=== PATIENT | female | born 2000 | race Caucasian/White ===

== ENCOUNTER 2019-04-17 18:01 | Emergency (ER) | payer OTHER, SELFPAY ==
[2019-04-17] MEDS ORDERED: NA CHLORIDE 0.9% 1,000 ML ONE (18:29)
[2019-04-17] MEDS ORDERED: ONDANSETRON 4 MG/2 ML VIAL ONE (18:29)
[2019-04-17 18:57] LABS: Absolute Lymphocytes (CBC) 2.3 K/uL (0.7-4.9); Basophils % 0.6 % (0-1.3); Hematocrit 39.5 % (36.0-45.0); Lymphocytes % 36.3 % (15.3-44.8); MPV 10.4 fL (7.6-11.3); RBC Red Blood Cell Count 4.67 M/uL (3.86-4.86)
[2019-04-17] MEDS ORDERED: FOLIC ACID 1 MG, MULTIVITAMINS INJ 10 ML, THIAMINE HCL 100 MG in NA CHLORIDE 0.9% 1,000 ML IV ONE (19:00)
[2019-04-17 19:05] LABS: Barbiturates NEGATIVE (NEGATIVE); Benzodiazepines NEGATIVE (NEGATIVE); Cocaine NEGATIVE (NEGATIVE); METHAMPHETAM NEGATIVE (NEGATIVE); Methadone NEGATIVE (NEGATIVE); Opiates NEGATIVE (NEGATIVE); Phencyclidine NEGATIVE (NEGATIVE); THC Cannibis NEGATIVE (NEGATIVE)
[2019-04-17 19:06] LABS: Protime INR 0.99
[2019-04-17 19:23] LABS: ALT/SGPT 26 U/L (12-78); AST/SGOT 19 U/L (15-37); Albumin 3.7 g/dL (3.4-5.0); Alkaline Phosphatase 79 U/L (45-117); BUN Blood Urea Nitrogen 12 mg/dL (7-18); Bicarbonate 24 mmol/L (21-32); Bilirubin Direct 0.2 mg/dL (0-0.2); Bilirubin Total 0.4 mg/dL (0.2-1.0); Glucose Level 76 mg/dL (74-106); Potassium 3.4 mmol/L (3.5-5.1); Protein, Total 6.8 g/dL (6.4-8.2); Sodium Level 141 mmol/L (136-145)
[2019-04-17 20:04] LABS: Urine Blood NEGATIVE (NEG); Urine Glucose NEGATIVE (NEG); Urine Protein NEGATIVE (NEG); Urine pH 5.5 (5.0-7.0)
--- NOTE | 2019-04-18 00:20 | ER ---
Nurse's Notes [facility] Name: Ankita Minaya Age: 18 yrs Sex: Female : 2000 Arrival Date: 04/17/2019 Time: 18:04 Bed 17 Private MD: Diagnosis: Anxiety disorder, unspecified;Other recurrent depressive disorders Presentation: 04/17 18:07 Presenting complaint: EMS states: boyfriend called EMS after pt had taken 50 (10 mg) em melatonin tablets and drank about 400 ml of vodka, pt awake but drowsy, states "I'm just tired" superficial cuts noted on the left wrist. Transition of care: patient was not received from another setting of care. Onset of symptoms was April 17, 2019. Risk Assessment: Do you want to hurt yourself or someone else? Patient reports desire/thoughts of hurting themselves or someone else. Provider notified. Initial Sepsis Screen: Does the patient meet any 2 criteria? No. Patient's initial sepsis screen is negative. Does the patient have a suspected source of infection? No. Patient's initial sepsis screen is negative. Care prior to arrival: Medication(s) given: Normal saline infusion, 1000 mL. 18:07 Method Of Arrival: EMS: [facility] em 18:07 Acuity: SUNNI 2 iw [employer]: 18:07 LMP 02/18/2019 em Historical: - Allergies: 18:07 No Known Allergies; em - Home Meds: 18:07 None [Active]; em - PMHx: 18:07 Depression; Anxiety; em - PSHx: 18:07 None; em - Immunization history:: Adult Immunizations unknown. - Social history:: Smoking status: . - Ebola Screening: : Patient negative for fever greater than or equal to 101.5 degrees Fahrenheit, and additional compatible Ebola Virus Disease symptoms Patient denies exposure to infectious person Patient denies travel to an Ebola-affected area in the 21 days before illness onset No symptoms or risks identified at this time. Screenin:07 Abuse screen: Denies threats or abuse. Nutritional screening: No deficits noted. em Tuberculosis screening: No symptoms or risk factors identified. Fall Risk Secondary diagnosis (15 points) impaired mobility, IV access (20 points). Gait- Impaired (20 pts.). Total Espinosa Fall Scale indicates High Risk Score (45 or more points). Side Rails Up X 2 Frequent Obs/Assessments Occuring. Assessment: 18:07 General: Appears in no apparent distress. comfortable, Behavior is cooperative, drowsy, em Smells of alcohol. Pain: Denies pain. Neuro: Level of Consciousness is awake, obeys commands. Cardiovascular: Capillary refill < 3 seconds Patient's skin is warm and dry. Respiratory: Airway is patent Respiratory effort is even, shallow, Respiratory pattern is regular, symmetrical. GI: Abdomen is flat, Reports nausea. : Urine is clear. Derm: Skin is intact, is healthy with good turgor, Skin is pink, warm \\T\\ dry. Musculoskeletal: Capillary refill < 3 seconds, Range of motion: intact in all extremities. 19:15 Reassessment: Patient appears in no apparent distress at this time. Patient and/or cc3 family updated on plan of care and expected duration. Pain level reassessed. Patient is alert, oriented x 3, equal unlabored respirations, skin warm/dry/pink. Received this female patient from morning shift [facility] as a case of drug overdose and suicidal ideation but currently patient said she doesn't have any plans of hurting herself nor others as of the moment. Patient with IV cannula gauge 20 at the right hand with ongoing banana bag infusion 1 liter at 200 mL/hr infusing well. Boyfriend at bedside and sitter present. Patient denies pain at this time. General: Appears in no apparent distress. comfortable, Behavior is calm, cooperative, appropriate for age, Smells of alcohol. Pain: Denies pain. Neuro: Level of Consciousness is awake, alert, obeys commands, Oriented to person, place, time, situation, Appropriate for age. Cardiovascular: Denies chest pain, Capillary refill < 3 seconds Patient's skin is warm and dry. Respiratory: Airway is patent Respiratory effort is even, unlabored, Respiratory pattern is regular, symmetrical. GI: Abdomen is flat. : No signs and/or symptoms were reported regarding the genitourinary system. EENT: No signs and/or symptoms were reported regarding the EENT system. Derm: Skin is intact, is healthy with good turgor, Skin is pink, warm \\T\\ dry. normal, noted with healed lacerations on her left wrist. Musculoskeletal: Circulation, motion, and sensation intact. Range of motion: intact in all extremities. 19:50 Reassessment: contacted poison control center at [phone] and spoke with pharmacist cc3 named Jaja Jaun and suggested to just give supportive care treatment for the patient and minimum of 4 hours observation and psychiatric consultation, , LANDON Vidal informed. 20:35 Reassessment: Patient appears in no apparent distress at this time. Patient and/or cc3 family updated on plan of care and expected duration. Pain level reassessed. Patient sleeping, boyfriend at bedside and sitter present. 21:40 Reassessment: Patient appears in no apparent distress at this time. Patient and/or cc3 family updated on plan of care and expected duration. Pain level reassessed. Patient is alert, oriented x 3, equal unlabored respirations, skin warm/dry/pink. Patient wanting to leave, informed that they cannot and that she needs to be observed and referred for psychiatric consultation, LANDON Vidal informed. Patient denies pain at this time. 22:12 Reassessment: Patient appears in no apparent distress at this time. Patient and/or cc3 family updated on plan of care and expected duration. Pain level reassessed. Patient is alert, oriented x 3, equal unlabored respirations, skin warm/dry/pink. Patient denies pain at this time. 23:45 Reassessment: Patient appears in no apparent distress at this time. Patient and/or cc3 family updated on plan of care and expected duration. Pain level reassessed. Patient is alert, oriented x 3, equal unlabored respirations, skin warm/dry/pink. Nurse to nurse report given to Dahlia Rapp of [facility]. 04/18 00:18 Reassessment: Patient appears in no apparent distress at this time. Patient and/or cc3 family updated on plan of care and expected duration. Pain level reassessed. Patient is alert, oriented x 3, equal unlabored respirations, skin warm/dry/pink. Patient denies pain at this time. 01:00 Reassessment: Patient appears in no apparent distress at this time. Patient and/or cc3 family updated on plan of care and expected duration. Pain level reassessed. Patient is alert, oriented x 3, equal unlabored respirations, skin warm/dry/pink. LANDON Vidal discharged the patient home, no prescription given. IV cannula removed and patient left ER vitally stable and ambulatory with her boyfriend. No valuables left in the patient's room. Patient denies pain at this time. Patient states feeling better. Patient states symptoms have improved. Psych: 04/17 19:15 Subjective: Patient's mood is normal Delusions are denied, Hallucinations are denied cc3 not suicidal nor homicidal. Objective: Patient is cooperative, Speech is normal, Affect is appropriate. Interventions: Removed personal items and placed in bag. Patient placed in hospital gown. Searched person for dangerous items. Patient reassessed during use of restraints. Patient is physically safe. Patient's cardiac status is stable. Patient's respirations are even and unlabored. Patient has good circulation in all extremities as indicated by capillary refill < 3 seconds. Patient's ROM assessed and is intact. Patient nutrition and hydration needs will continue to be monitored and addressed. Patient hygiene and elimination needs met. Patient assessed for signs of distress. Patient remains reasonably comfortable at this time. Assisted patient in de-escalation of behavior by removing stimuli causing behavior where possible. Suicide Risk Assessment: Sad Person Scale: Sex of patient: Female: Score 0 points. Age of patient: Score 1 point if patient 15-34. Depression: Score 0 point if signs of depression are not present. Previous Attempt: Score 1 point if patient has previously attempted suicide. Substance Abuse: Score 1 point if patient abuses alcohol or drugs. Rational Thinking: Score 0 point if patient has rational thinking. Social Support: Score 0 if social support is present/available. Organized Plan: Score 0 if patient did not have an organized plan in place. Relationship: Score 0 point if patient has a spouse or domestic partner. Chronic Sickness: Score 0 point if patient does not have a chronic illness, debilitating, or severe disorder. TOTAL POINTS: If total points are 3-4, proposed clinical action is close follow-up/consider hospitalization. Safety Checks: Personal items have been removed. Door is open. Visitors are present. sitter present. Patient uses took approx 400 mL of tequila today prior to consult. Commitment: Patient will be a voluntary commitment. Vital Signs: 18:07 BP 106 / 71; Pulse 78; Resp 12; Temp 98.9(TE); Pulse Ox 97% on R/A; Weight 74.84 kg; em Height 5 ft. 4 in. (162.56 cm); Pain 0/10; 19:00 BP 106 / 62; Pulse 72; Resp 14 S; Pulse Ox 100% on R/A; cc3 20:30 BP 94 / 55; Pulse 100; Resp 13; Pulse Ox 99% on R/A; oe 21:30 BP 95 / 54; Pulse 92; Resp 20; Pulse Ox 100% on R/A; oe 22:00 BP 95 / 58; Pulse 86; Resp 19; Pulse Ox 98% on R/A; oe 23:00 BP 108 / 70; Pulse 79; Resp 18; Pulse Ox 98% on R/A; oe 04/18 00:00 BP 128 / 93; Pulse 79; Resp 19; Pulse Ox 100% on R/A; oe 08 18:07 Body Mass Index 28.32 (74.84 kg, 162.56 cm) em Lutz Coma Score: 08 18:26 Eye Response: to voice(3). Verbal Response: oriented(5). Motor Response: obeys jr8 commands(6). Total: 14. ED Course: 18:04 Patient arrived in ED. iw 18:04 Benny Vidal PA is PHCP. iw 18:07 Mulugeta Kahn LVN is Primary Nurse. em 18:07 Arm band placed on. em 18:07 Patient has correct armband on for positive identification. Placed in gown. Bed in low em position. Call light in reach. Side rails up X2. 18:07 Maintain EMS IV. Dressing intact. Good blood return noted. Site clean \\T\\ dry. Gauge \\T\\ em site: 20 R wrist. IV is patent, is intact, with fluids infusing freely, with good blood return. 18:31 Duke Tavares MD is Attending Physician. jr8 18:36 Triage completed. iw 18:45 Safety checks: Items removed: yes. Door open/sign placed on door: yes. Family/friend [email or web address] present: yes. Family/friends encouraged to stay with patient. Sitter present: Yes. 19:00 Safety checks: Items removed: yes. Door open/sign placed on door: yes. Family/friend [email or web address] present: yes. Family/friends encouraged to stay with patient. Sitter present: Yes. 19:15 Safety checks: Items removed: yes. Door open/sign placed on door: yes. Family/friend oe present: yes. Sitter present: Yes. 19:30 Safety checks: Items removed: yes. Door open/sign placed on door: yes. Family/friend oe present: yes. Sitter present: Yes. 19:45 Safety checks: Items removed: yes. Door open/sign placed on door: yes. Family/friend oe present: yes. Sitter present: Yes. 20:00 Safety checks: Items removed: yes. Door open/sign placed on door: yes. Family/friend oe present: yes. Sitter present: Yes. 20:10 Diet: Patient given snack. Patient given juice. oe 20:15 Safety checks: Items removed: yes. Door open/sign placed on door: yes. Family/friend oe present: yes. Sitter present: Yes. 20:30 Safety checks: Items removed: yes. Door open/sign placed on door: yes. Family/friend oe present: yes. Sitter present: Yes. 20:43 Pillow given. oe 20:44 Diet: potato chips given. oe 20:45 Safety checks: Items removed: yes. Door open/sign placed on door: yes. Family/friend oe present: yes. Sitter present: Yes. 21:00 Safety checks: Items removed: yes. Door open/sign placed on door: yes. Family/friend oe present: yes. Sitter present: Yes. 21:15 Safety checks: Items removed: yes. Door open/sign placed on door: yes. Family/friend oe present: yes. Sitter present: Yes. 21:30 Safety checks: Items removed: yes. Door open/sign placed on door: yes. Family/friend oe present: yes. Sitter present: Yes. 21:45 Safety checks: Items removed: yes. Door open/sign placed on door: yes. Family/friend oe present: yes. Sitter present: Yes. 22:00 Safety checks: Items removed: yes. Door open/sign placed on door: yes. Family/friend oe present: yes. Sitter present: Yes. 22:15 Safety checks: Items removed: yes. Door open/sign placed on door: yes. Family/friend oe present: yes. Sitter present: Yes. 22:30 Safety checks: Items removed: yes. Door open/sign placed on door: yes. Family/friend oe present: yes. Sitter present: Yes. 22:45 Safety checks: Items removed: yes. Door open/sign placed on door: yes. Family/friend oe present: yes. Sitter present: Yes. 23:00 Safety checks: Items removed: yes. Door open/sign placed on door: yes. Family/friend oe present: no. Sitter present: Yes. 04/18 00:00 Safety checks: Items removed: yes. Door open/sign placed on door: yes. Family/friend oe present: no. Sitter present: Yes. 00:15 Safety checks: Items removed: yes. Door open/sign placed on door: yes. Family/friend oe present: no. Sitter present: Yes. 00:48 No provider procedures requiring assistance completed. IV discontinued, intact, rr5 bleeding controlled, No redness/swelling at site. Pressure dressing applied. Administered Medications: 04/17 18:42 Drug: NS 0.9% 1000 ml Route: IV; Rate: 1000 ml; Site: right antecubital; 19:30 Follow up: Response: No adverse reaction; IV Status: Completed infusion; IV Intake: cc3 1000ml 19:08 Drug: Banana Bag - (NS 0.9% 1000 ml, foLIC Acid 1 mg, Thiamine 100 mg, Multivitamin 1 em amp) Route: IV; Rate: calculated rate; Site: right antecubital; 04/18 00:45 Follow up: Response: No adverse reaction; IV Status: Completed infusion; IV Intake: cc3 1000ml Intake: 04/17 19:30 IV: 1000ml; Total: 1000ml. cc3 04/18 00:45 IV: 1000ml; Total: 2000ml. cc3 Outcome: 00:16 Discharge ordered by MD. carson 01:00 Patient left the ED. cc3 01:00 Discharged to home ambulatory, with boyfriend cc3 01:00 Condition: stable 01:00 Discharge instructions given to patient, Instructed on discharge instructions, follow up and referral plans. Demonstrated understanding of instructions, follow-up care. Signatures: Mulugeta Kahn LVN BELT DRESSER em Emily Nugent RN Benny Jones PA PA jrAngel Pollard Charlene cc3 Ollie Banks RN RN rr5 Dena Hyman [email or web address] Corrections: (The following items were deleted from the chart) 04/17 18:53 18:07 BP 106 / 71; Pulse 78bpm; Resp 12bpm; Pulse Ox 97% RA; Temp 98.9F Temporal; em em 18:53 18:50 Safety checks: Items removed: yes. Door open/sign placed on door: yes. [email or web address] Family/friend present: yes. Family/friends encouraged to stay with patient. Sitter present: Yes. kj1 18:53 18:50 Sitter at bedside. [place] [id number] 19:34 19:27 Safety checks: Items removed: yes. Door open/sign placed on door: yes. oe Family/friend present: yes. Sitter present: Yes. oe 20:33 20:27 Safety checks: Items removed: yes. Door open/sign placed on door: yes. oe Family/friend present: yes. Sitter present: Yes. oe 20:35 19:50 Reassessment: contacted poison control center at [phone] and spoke with cc3 pharmacist named Jaja Zamorano and suggested to just give supportive care treatment for the patient and minimum of 4 hours observation and psychiatric consultation, . cc3 20:37 19:15 Reassessment: Patient appears in no apparent distress at this time. Patient cc3 and/or family updated on plan of care and expected duration. Pain level reassessed. Patient is alert, oriented x 3, equal unlabored respirations, skin warm/dry/pink. Received this female patient from morning shift [facility] as a case of drug overdose and suicidal ideation but currently patient said she doesn't have any plans of hurting herself nor others as of the moment. Patient with IV cannula gauge 20 at the right hand with ongoing banana bag infusion 1 liter at 200 mL/hr infusing well. Patient denies pain at this time. cc3 20:46 20:44 Diet: chips given. oe oe 20:52 20:35 Reassessment: Patient appears in no apparent distress at this time. Patient cc3 and/or family updated on plan of care and expected duration. Pain level reassessed. Patient is alert, oriented x 3, equal unlabored respirations, skin warm/dry/pink. Patient sleeping, boyfriend at bedside and sitter present. cc3 21:49 21:42 Safety checks: Items removed: yes. Door open/sign placed on door: yes. oe Family/friend present: yes. Sitter present: Yes. oe 22:56 21:51 Safety checks: Items removed: yes. Door open/sign placed on door: yes. oe Family/friend present: yes. Sitter present: Yes. oe
--- NOTE | 2019-04-18 00:22 | EDPHYS ---
Physician Documentation [facility] Name: Ankita Minaya Age: 18 yrs Sex: Female : 2000 Arrival Date: 04/17/2019 Time: 18:04 Bed 17 Private MD: ED Physician Duke Tavares HPI: 04/17 18:26 This 18 yrs old Female presents to ER via EMS with complaints of Suicidal jr8 Gesture. 18:26 The patient presents to the emergency department with anxiety, depression, a history of jr8 a suicide gesture. Onset: The symptoms/episode began/occurred acutely, today. Past psychiatric history: Prior diagnosis: depression. Associated signs and symptoms: Pertinent positives; depression, substance abuse. Severity of symptoms: At their worst the symptoms were moderate in the emergency department the symptoms are unchanged. It is unknown whether or not the patient has had similar symptoms in the past. It is unknown whether or not the patient has recently seen a physician. Patient stated that she has been depressed but would not go into why. EMS stated that they were called out because patients boyfriend received a text saying she was going to kill herself. Patient took melatonin and unknown quantity of ETOH to dull the pain per patient. Patient sleepy but easy to arouse at this time . 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 - Social history:: Smoking status: . - Ebola Screening: : Patient negative for fever greater than or equal to 101.5 degrees Fahrenheit, and additional compatible Ebola Virus Disease symptoms Patient denies exposure to infectious person Patient denies travel to an Ebola-affected area in the 21 days before illness onset No symptoms or risks identified at this time. ROS: 18:26 Eyes: Negative for injury, pain, redness, and discharge, ENT: Negative for injury, jr8 pain, and discharge, Neck: Negative for injury, pain, and swelling, Cardiovascular: Negative for chest pain, palpitations, and edema, Respiratory: Negative for shortness of breath, cough, wheezing, and pleuritic chest pain, Abdomen/GI: Negative for abdominal pain, nausea, vomiting, diarrhea, and constipation, Back: Negative for injury and pain, MS/Extremity: Negative for injury and deformity, Skin: Negative for injury, rash, and discoloration, Neuro: Negative for headache, weakness, numbness, tingling, and seizure. 18:26 Psych: Positive for anxiety, depression, suicide gesture, suicidal ideation. Exam: 18:26 Eyes: Pupils equal round and reactive to light, extra-ocular motions intact. Lids and jr8 lashes normal. Conjunctiva and sclera are non-icteric and not injected. Cornea within normal limits. Periorbital areas with no swelling, redness, or edema. ENT: Nares patent. No nasal discharge, no septal abnormalities noted. Tympanic membranes are normal and external auditory canals are clear. Oropharynx with no redness, swelling, or masses, exudates, or evidence of obstruction, uvula midline. Mucous membranes moist. Neck: Trachea midline, no thyromegaly or masses palpated, and no cervical lymphadenopathy. Supple, full range of motion without nuchal rigidity, or vertebral point tenderness. No Meningismus. Cardiovascular: Regular rate and rhythm with a normal S1 and S2. No gallops, murmurs, or rubs. Normal PMI, no JVD. No pulse deficits. Respiratory: Lungs have equal breath sounds bilaterally, clear to auscultation and percussion. No rales, rhonchi or wheezes noted. No increased work of breathing, no retractions or nasal flaring. Abdomen/GI: Soft, non-tender, with normal bowel sounds. No distension or tympany. No guarding or rebound. No evidence of tenderness throughout. Back: No spinal tenderness. No costovertebral tenderness. Full range of motion. Skin: Warm, dry with normal turgor. Normal color with no rashes, no lesions, and no evidence of cellulitis. MS/ Extremity: Pulses equal, no cyanosis. Neurovascular intact. Full, normal range of motion. Neuro: Awake and alert, oriented to person, place, time, and situation. Cranial nerves II-XII grossly intact. Motor strength 5/5 in all extremities. Sensory grossly intact. Cerebellar exam normal. Normal gait. Vital Signs: 18:07 BP 106 / 71; Pulse 78; Resp 12; Temp 98.9(TE); Pulse Ox 97% on R/A; Weight 74.84 kg; em Height 5 ft. 4 in. (162.56 cm); Pain 0/10; 19:00 BP 106 / 62; Pulse 72; Resp 14 S; Pulse Ox 100% on R/A; cc3 20:30 BP 94 / 55; Pulse 100; Resp 13; Pulse Ox 99% on R/A; oe 21:30 BP 95 / 54; Pulse 92; Resp 20; Pulse Ox 100% on R/A; oe 22:00 BP 95 / 58; Pulse 86; Resp 19; Pulse Ox 98% on R/A; oe 23:00 BP 108 / 70; Pulse 79; Resp 18; Pulse Ox 98% on R/A; oe 04/18 00:00 BP 128 / 93; Pulse 79; Resp 19; Pulse Ox 100% on R/A; oe 04/17 18:07 Body Mass Index 28.32 (74.84 kg, 162.56 cm) em [place] Coma Score: 04/17 18:26 Eye Response: to voice(3). Verbal Response: oriented(5). Motor Response: obeys jr8 commands(6). Total: 14. MDM: 18:08 Patient medically screened. jr8 04/18 00:02 Data reviewed: vital signs, nurses notes, lab test result(s), EKG. Data interpreted: jr8 Pulse oximetry: on room air is 99 %. Interpretation: normal. Counseling: I had a detailed discussion with the patient and/or guardian regarding: the historical points, exam findings, and any diagnostic results supporting the discharge/admit diagnosis, lab results, the need for outpatient follow up, a psychiatrist, to return to the emergency department if symptoms worsen or persist or if there are any questions or concerns that arise at home. ED course: I had 20 minute conversation and reevaluation with patient. Patient feeling much better. Went into great detail the event that occurred. Stated that her boyfriend and her got into an argument. Has since made up. Stated that the intention of taking the alcohol and melatonin was just to go to sleep so she could escape the mental stress. Stated that she took 50-60 mg of melatonin which she normally takes to go to bed at night. Patient has no intention of hurting herself. Stated that she has good relationship with boyfriend and does not want to leave her family or animals. Admits that her act was stupid and is sorrowful for what happened. . 04/17 18:14 Order name: Acetaminophen [facility] 04/17 18:14 Order name: Basic Metabolic Panel [facility] 04/17 18:14 Order name: CBC with Diff [facility] 04/17 18:14 Order name: ETOH Level; Complete Time: 19:29 [facility] 04/17 18:14 Order name: Hepatic Function; Complete Time: 19:30 [facility] 04/17 18:14 Order name: PT-INR; Complete Time: 19:29 [facility] 04/17 18:14 Order name: Ptt, Activated; Complete Time: 19:29 [facility] 04/17 18:14 Order name: Salicylate; Complete Time: 19:29 [facility] 04/17 18:14 Order name: Urine Drug Screen; Complete Time: 19:29 [facility] 04/17 18:15 Order name: Acetaminophen Level; Complete Time: 19:30 [facility] 04/17 18:15 Order name: Basic Metabolic Panel; Complete Time: 19:30 [facility] 04/17 18:15 Order name: CBC with Automated Diff; Complete Time: 19:29 [facility] 04/17 18:43 Order name: Urine Dipstick--Ancillary (enter results); Complete Time: 20:16 04/17 18:43 Order name: Urine --Ancillary (enter results); Complete Time: 20:16 04/17 18:14 Order name: EKG; Complete Time: 18:15 [facility] 04/17 18:14 Order name: EKG - Nurse/Tech; Complete Time: 18:42 [facility] 04/17 18:14 Order name: IV Saline Lock; Complete Time: 18:42 [facility] 04/17 18:14 Order name: Labs collected and sent; Complete Time: 18:42 [facility] 04/17 18:14 Order name: Urine Dipstick-Ancillary (obtain specimen); Complete Time: 18:42 [facility] 04/17 18:14 Order name: Urine Test (obtain specimen); Complete Time: 18:42 [facility] Administered Medications: 04/17 18:42 Drug: NS 0.9% 1000 ml Route: IV; Rate: 1000 ml; Site: right antecubital; em 19:30 Follow up: Response: No adverse reaction; IV Status: Completed infusion; IV Intake: cc3 1000ml 19:08 Drug: Banana Bag - (NS 0.9% 1000 ml, foLIC Acid 1 mg, Thiamine 100 mg, Multivitamin 1 em amp) Route: IV; Rate: calculated rate; Site: right antecubital; 04/18 00:45 Follow up: Response: No adverse reaction; IV Status: Completed infusion; IV Intake: cc3 1000ml Disposition: 04/18/19 00:16 Discharged to Home. Impression: Anxiety disorder, unspecified, Other recurrent depressive disorders. - Condition is Stable. - Discharge Instructions: Panic Attacks, Generalized Anxiety Disorder, Persistent Depressive Disorder. - Medication Reconciliation Form, Thank You Letter, Antibiotic Education, Prescription Opioid Use, SBAR form form. - Follow up: Private Physician; When: 1 - 2 days; Reason: Recheck today's complaints, Continuance of care, Re-evaluation by your physician. - Problem is new. - Symptoms have improved. Addendum: 04/19/2019 19:54 Co-signature as Attending Physician, Duke Tavares MD. r n Signatures: Dispatcher [employer] EDMulugeta Gauthier, MEDICAL SECRETARY MEDICAL SECRETARY Duke Ibrahim MD MD rn Benny Vidal PA PA jr8 Ruma Marie cc3 Corrections: (The following items were deleted from the chart) 04/17 18:31 18:26 Eyes: Pupils equal round and reactive to light, extra-ocular motions intact. Lids jr8 and lashes normal. Conjunctiva and sclera are non-icteric and not injected. Cornea within normal limits. Periorbital areas with no swelling, redness, or edema. ENT: Nares patent. No nasal discharge, no septal abnormalities noted. Tympanic membranes are normal and external auditory canals are clear. Oropharynx with no redness, swelling, or masses, exudates, or evidence of obstruction, uvula midline. Mucous membranes moist. Neck: Trachea midline, no thyromegaly or masses palpated, and no cervical lymphadenopathy. Supple, full range of motion without nuchal rigidity, or vertebral point tenderness. No Meningismus. Cardiovascular: Regular rate and rhythm with a normal S1 and S2. No gallops, murmurs, or rubs. Normal PMI, no JVD. No pulse deficits. Respiratory: Lungs have equal breath sounds bilaterally, clear to auscultation and percussion. No rales, rhonchi or wheezes noted. No increased work of breathing, no retractions or nasal flaring. Abdomen/GI: Soft, non-tender, with normal bowel sounds. No distension or tympany. No guarding or rebound. No evidence of tenderness throughout. Back: No spinal tenderness. No costovertebral tenderness. Full range of motion. Skin: Warm, dry with normal turgor. Normal color with no rashes, no lesions, and no evidence of cellulitis. MS/ Extremity: Pulses equal, no cyanosis. Neurovascular intact. Full, normal range of motion. Neuro: Awake and alert, GCS 15, oriented to person, place, time, and situation. Cranial nerves II-XII grossly intact. Motor strength 5/5 in all extremities. Sensory grossly intact. Cerebellar exam normal. Normal gait. jr8 18:42 18:15 Persaud ordered. jr8 em 04/18 00:04 04/17 18:26 Patient stated that she has been depressed but would not go into why. EMS jr8 stated that they were called out because patients boyfriend received a text saying she was going to kill herself. Patient took multiple melatonin and unknown quantity of ETOH in attempt to hurt herself. Patient sleepy but easy to arouse at this time . jr8 04/18 01:00 00:16 04/18/2019 00:16 Discharged to Home. Impression: Anxiety disorder, unspecified; cc3 Other recurrent depressive disorders. Condition is Stable. Forms are SBAR form, Medication Reconciliation Form, Thank You Letter, Antibiotic Education, Prescription Opioid Use. Follow up: Private Physician; When: 1 - 2 days; Reason: Recheck today's complaints, Continuance of care, Re-evaluation by your physician. Problem is new. Symptoms have improved. jr8
[2019-04-18 01:42] VITALS: TEMP 98.9
[2019-04-18 01:50] VITALS: BP 128/93; O2SAT 100
--- NOTE | 2019-04-18 07:44 | EKG ---
Test Date: 2019-04-17 Test Time: 18:38:37 Door Repairer Bus: CARLOS MANUEL MEASUREMENT RESULTS: Intervals: Rate: 60 AK: 160 QRSD: 82 QT: 418 QTc: 418 [place]: P: 53 AK: 160 QRS: 87 T: 66 INTERPRETIVE STATEMENTS: Sinus rhythm with premature atrial complexes Low voltage QRS Borderline ECG No previous ECG available for comparison Electronically Signed On 04-18-19 07:42:34 CDT by Bruce Edwards
== END 2019-04-18 01:00 | disposition home or self-care (01) ==
LOC: ER 18:01
DX: T50.992A Poisoning by other drugs, medicaments and biological substances, intentional self-harm, initial encounter (principal); F41.9 Anxiety disorder, unspecified; F33.8 Other recurrent depressive disorders; F32.9 Major depressive disorder, single episode, unspecified
CPT/HCPCS: 36415; 80048; 80076; 80307; 80320; 80329; 81003; 81025; 85025; 85610; 85730; 93005; 96365; 96366; 99284; J2405; J3411; J7030